=== PATIENT | male | born 1975 | race Caucasian/White ===

== ENCOUNTER 2020-07-31 15:51 | Outpatient (CLI) | payer OTHER | END 2020-07-31 16:17 | disposition home or self-care (01) | LOC: RAD 15:51 | PROVIDERS: ATTEND Family Medicine | DX: R05 Cough (principal); Z03.818 Encounter for observation for suspected exposure to other biological agents ruled out ==

== ENCOUNTER 2023-02-15 08:53 | Outpatient (CLI) | payer OTHER | END 2023-02-15 08:59 | disposition home or self-care (01) | LOC: RAD 08:53 | PROVIDERS: ATTEND Urology | DX: R05.8 Other specified cough (principal) ==

== ENCOUNTER 2023-06-14 09:38 | Outpatient (CLI) | payer OTHER | END 2023-06-14 09:57 | disposition home or self-care (01) | LOC: RAD 09:38 | PROVIDERS: ATTEND Chiropractor Sports Physician | DX: J44.9 Chronic obstructive pulmonary disease, unspecified (principal); M25.561 Pain in right knee; M47.814 Spondylosis without myelopathy or radiculopathy, thoracic region ==

== ENCOUNTER 2023-11-10 15:14 | Outpatient (CLI) | payer OTHER | END 2023-11-10 15:35 | disposition home or self-care (01) | LOC: RAD 15:14 | PROVIDERS: ATTEND Family Medicine | DX: R05.9 Cough, unspecified (principal) ==

== ENCOUNTER 2025-04-25 15:14 | Outpatient (CLI) | payer OTHER | END 2025-04-25 15:25 | disposition home or self-care (01) | LOC: SONOGRAMA 15:14 | PROVIDERS: ATTEND Urology | DX: R31.1 Benign essential microscopic hematuria (principal); N40.0 Benign prostatic hyperplasia without lower urinary tract symptoms ==